=== PATIENT | female | born 1950 | race Caucasian/White ===

== ENCOUNTER 2018-05-01 09:14 | Emergency (ER) | payer OTHER, BC ==
[~2018-05-01] VITALS: Ht 165.1 cm; Wt 63.8 kg
[2018-05-01 12:25] VITALS: BP 131/60
== END 2018-05-01 12:26 | disposition home or self-care (01) ==
LOC: EME 09:14
PROC: 3E0234Z Introduction of Serum, Toxoid and Vaccine into Muscle, Percutaneous Approach (ICD-10-PCS; principal; 2018-05-01)
DX: Z20.3 Contact with and (suspected) exposure to rabies (principal); Z23 Encounter for immunization; Z29.14 Encounter for prophylactic rabies immune globulin
CPT/HCPCS: 99281; 99283